=== PATIENT | male | born 1960 | race African-American/Black ===

== ENCOUNTER 2017-04-28 17:25 | Emergency (ER) | payer MEDICAID ==
[~2017-04-28] VITALS: Ht 172.7 cm; Wt 75.3 kg
[~2017-04-28 17:25] MED LIST: LISI10TA5 PO; METF10002 PO
[2017-04-28 19:50] LABS: BASOPHILS % 1.2 % (0.0-2.0); EOSINOPHILS % 1.2 % (0.0-5.0); HEMATOCRIT. 41.8 % (42.0-52.0); HEMOGLOBIN. 13.9 g/dL (14.0-18.0); LYMPHOCYTES % 40.6 % (20.0-50.0); MONOCYTES % 8.7 % (2.0-8.0); NEUTROPHILS % 48.3 % (40.0-76.0); PLATELET 208 x1000/uL (130-400); RED BLOOD CELL COUNT 5.16 mill/uL (4.7-6.1)
[2017-04-28 19:53] LABS: PROTHROMBIN TIME 10.2 sec
[2017-04-28 20:02] LABS: CARBON DIOXIDE 23 mEq/L (21-32); CHLORIDE 102 mEq/L (98-107); ETHANOL BLOOD < 10 mg/dL
[2017-04-28] MEDS ORDERED: ALTEPLASE 100MG/VIAL IV STA ×2 (20:47)
[2017-04-28] MEDS ORDERED: ALTEPLASE 100MG/VIAL IV NR ×2 (21:00)
[2017-04-28 22:20] VITALS: BP 127/72
== END 2017-04-28 22:45 | disposition short-term general hospital (02) ==
LOC: ER 17:25
DX: I69.354 Hemiplegia and hemiparesis following cerebral infarction affecting left non-dominant side (principal); F17.200 Nicotine dependence, unspecified, uncomplicated; J45.909 Unspecified asthma, uncomplicated; R29.810 Facial weakness; Z88.6 Allergy status to analgesic agent; Z88.8 Allergy status to other drugs, medicaments and biological substances
CPT/HCPCS: 36415; 37195; 70450; 71010; 80053; 82962; 85025; 85610; 93005; 99285; G0482; J2997; Z7610

== ENCOUNTER 2017-06-02 05:23 | Inpatient (IN) | payer MEDICAID ==
[~2017-06-02] VITALS: Ht 172.7 cm; Wt 74.8 kg
[2017-06-02] MEDS ORDERED: SODIUM CHLORIDE 0.9% 1,000 ML IV ONE (06:33)
[2017-06-02 07:34] LABS: BASOPHILS % 0.8 % (0.0-2.0); EOSINOPHILS % 0.9 % (0.0-5.0); HEMATOCRIT. 45.7 % (42.0-52.0); HEMOGLOBIN. 15.8 g/dL (14.0-18.0); LYMPHOCYTES % 34.4 % (20.0-50.0); MEAN CORPUSCULAR HEMOGLOBIN 27.9 pg (28.0-32.0); MEAN CORPUSCULAR VOLUME 80.8 fL (80.0-94.0); MEAN PLATELET VOLUME 7.7 fl (7.4-10.4); MONOCYTES % 9.7 % (2.0-8.0); NEUTROPHILS % 54.2 % (40.0-76.0); PLATELET 211 x1000/uL (130-400); RED BLOOD CELL COUNT 5.65 mill/uL (4.7-6.1); RED CELL DISTRIBUTION WIDTH 14.1 % (11.6-14.6)
[2017-06-02 07:36] LABS: PROTHROMBIN TIME 10.1 sec (9.4-11.6)
[2017-06-02 07:37] LABS: CHLORIDE 102 mEq/L (98-107)
[2017-06-02 07:46] LABS: CARBON DIOXIDE 27 mEq/L (21-32); ETHANOL BLOOD < 10 mg/dL; TROPONIN I < 0.02 ng/mL (0.00-0.04)
[2017-06-02 15:01] LABS: CLARITY URINE CLEAR (CLEAR); COLOR URINE YELLOW (YELLOW); GLUCOSE URINE TRACE (NEGATIVE); KETONES URINE TRACE (NEGATIVE); LEUKOCYTE ESTERASE URINE NEGATIVE (NEGATIVE); NITRITE URINE NEGATIVE (NEGATIVE); OCCULT BLOOD URINE NEGATIVE (NEGATIVE); PH URINE 5.5 (4.5-8.0); PROTEIN URINE TRACE (NEGATIVE); SPECIFIC GRAVITY URINE 1.014 (1.005-1.030)
[2017-06-02 15:15] LABS: *AMPHETAMINES SCREEN URINE PRESUMTIVE POSITIVE (NEGATIVE); *BARBITURATES SCREEN URINE NEGATIVE (NEGATIVE); *BENZODIAZEPINES SCREEN URINE NEGATIVE (NEGATIVE); *COCAINE SCREEN URINE PRESUMTIVE POSITIVE (NEGATIVE); CANNABINOID URINE SCREEN NEGATIVE (NEGATIVE); METHADONE URINE SCREEN NEGATIVE (NEGATIVE); OPIATES URINE SCREEN NEGATIVE (NEGATIVE); PHENCYCLIDINE URINE SCREEN NEGATIVE (NEGATIVE)
[2017-06-02 15:30] VITALS: BP_SYST 112; BP_SYST 113; BP_DIAS 74; BP_DIAS 75
[2017-06-02 16:00] VITALS: BP 105/66
[2017-06-02] MEDS ORDERED: CLONIDINE 0.1MG TABLET PO PRN (16:30)
[2017-06-02] MEDS ORDERED: ONDANSETRON HCL 4MG/2ML VIAL IV PRN (16:30)
[2017-06-02] MEDS ORDERED: MAGNESIUM/ALUMINUM HYDROXIDE/SIMETHICONE 30ML UDC PO PRN (16:30)
[2017-06-02] MEDS ORDERED: ACETAMINOPHEN 325MG TABLET PO PRN (16:30)
[2017-06-02] MEDS ORDERED: DIPHENHYDRAMINE 50MG/ML VIAL IV PRN (16:30)
[2017-06-02 16:39] VITALS: BP 105/66
[2017-06-02 20:00] VITALS: BP 106/72
[2017-06-02] MEDS: NAPROXEN 500MG TABLET PO SCH (21:00)
[2017-06-02] MEDS: SODIUM CHLORIDE 0.9% INJ 3ML FLUSH IVF SCH (23:01)
[2017-06-03] VITALS: BP 99/58
[2017-06-03 04:00] VITALS: BP 127/69
[2017-06-03] MEDS: SODIUM CHLORIDE 0.9% INJ 3ML FLUSH IVF SCH ×3 (06:45→22:51)
[2017-06-03 08:18] VITALS: BP 123/78
[2017-06-03] MEDS: NAPROXEN 500MG TABLET PO SCH ×2 (08:52→21:00)
[2017-06-03 11:51] VITALS: BP 118/75
[2017-06-03 15:17] VITALS: BP 101/64
[2017-06-03 20:00] VITALS: BP 119/70
[2017-06-04] VITALS: BP 136/75
[2017-06-04 04:00] VITALS: BP 104/77
[2017-06-04] MEDS: SODIUM CHLORIDE 0.9% INJ 3ML FLUSH IVF SCH ×3 (05:22→21:52)
[2017-06-04 08:00] VITALS: BP 128/80
[2017-06-04] MEDS: NAPROXEN 500MG TABLET PO SCH ×2 (08:51→21:00)
[2017-06-04 12:00] VITALS: BP 118/70
[2017-06-04 16:03] LABS: *AMPHETAMINES SCREEN URINE NEGATIVE (NEGATIVE); *BARBITURATES SCREEN URINE NEGATIVE (NEGATIVE); *BENZODIAZEPINES SCREEN URINE NEGATIVE (NEGATIVE); *COCAINE SCREEN URINE PRESUMTIVE POSITIVE (NEGATIVE); CANNABINOID URINE SCREEN NEGATIVE (NEGATIVE); METHADONE URINE SCREEN NEGATIVE (NEGATIVE); OPIATES URINE SCREEN NEGATIVE (NEGATIVE); PHENCYCLIDINE URINE SCREEN NEGATIVE (NEGATIVE)
[2017-06-04 20:00] VITALS: BP 104/62
[2017-06-05] VITALS: BP 120/76
[2017-06-05 04:00] VITALS: BP 132/79
[2017-06-05] MEDS: SODIUM CHLORIDE 0.9% INJ 3ML FLUSH IVF SCH ×3 (06:00→22:00)
[2017-06-05 08:00] VITALS: BP 118/77
[2017-06-05] MEDS: NAPROXEN 500MG TABLET PO SCH ×2 (09:00→21:00)
[2017-06-05 12:08] VITALS: BP 107/66
[2017-06-05 16:57] VITALS: BP 105/71
[2017-06-05] MEDS ORDERED: MAGNESIUM HYDROXIDE 400MG/5ML 30ML UDC PO PRN (17:00)
[2017-06-05 20:00] VITALS: BP 109/70
[2017-06-06] VITALS: BP 110/67
[2017-06-06 04:00] VITALS: BP 126/70
[2017-06-06] MEDS: SODIUM CHLORIDE 0.9% INJ 3ML FLUSH IVF SCH ×3 (06:00→21:48)
[2017-06-06 07:35] VITALS: BP 109/76
[2017-06-06] MEDS: DOCUSATE SODIUM 250MG CAPSULE PO SCH (09:00)
[2017-06-06] MEDS: NAPROXEN 500MG TABLET PO SCH ×2 (09:00→21:00)
[2017-06-06] MEDS ORDERED: DEXTROSE 50% WATER 50ML SYRINGE IV PRN (10:00)
[2017-06-06] MEDS: BLOOD SUGAR DIAGNOSTIC STRIP TEST SCH ×3 (11:45→21:00)
[2017-06-06] MEDS: INSULIN LISPRO 100 UNITS/ML SUBCUT SCH ×3 (11:47→21:00)
[2017-06-06 12:02] VITALS: BP 111/74
[2017-06-06 15:55] VITALS: BP 113/67
[2017-06-06 20:00] VITALS: BP 116/73
[2017-06-06] MEDS: POLYETHYLENE GLYCOL 3350 (17GM) 1 DOSE PACK PO SCH (21:18)
[2017-06-07] VITALS: BP 101/66
[2017-06-07 04:00] VITALS: BP 120/72
[2017-06-07] MEDS: SODIUM CHLORIDE 0.9% INJ 3ML FLUSH IVF SCH (06:00)
[2017-06-07] MEDS: INSULIN LISPRO 100 UNITS/ML SUBCUT SCH ×2 (06:31→12:15)
[2017-06-07] MEDS: BLOOD SUGAR DIAGNOSTIC STRIP TEST SCH ×2 (06:31→11:45)
[2017-06-07 08:04] VITALS: BP 108/71
[2017-06-07] MEDS: POLYETHYLENE GLYCOL 3350 (17GM) 1 DOSE PACK PO SCH (08:57)
[2017-06-07] MEDS: DOCUSATE SODIUM 250MG CAPSULE PO SCH (08:58)
[2017-06-07] MEDS: NAPROXEN 500MG TABLET PO SCH (08:58)
[2017-06-07 11:48] VITALS: BP 97/66
[2017-06-07 13:55] VITALS: BP 97/66
== END 2017-06-07 14:55 | disposition home or self-care (01) | DRG 48 ==
LOC: EDBEDREQ 08:51 → EDBEDREQTM 08:51 → ER 09:03 → 5WST 09:05 → ENRESERV 12:40
PROVIDERS: ADMIT Internal Medicine; ATTEND Internal Medicine
DX: G90.8 Other disorders of autonomic nervous system (principal); I69.354 Hemiplegia and hemiparesis following cerebral infarction affecting left non-dominant side; I10 Essential (primary) hypertension; F17.200 Nicotine dependence, unspecified, uncomplicated; F19.10 Other psychoactive substance abuse, uncomplicated; E11.9 Type 2 diabetes mellitus without complications; J45.909 Unspecified asthma, uncomplicated; W18.39XA Other fall on same level, initial encounter; Y93.89 Activity, other specified; Y92.89 Other specified places as the place of occurrence of the external cause; Z76.5 Malingerer [conscious simulation]; Y99.8 Other external cause status; Z88.6 Allergy status to analgesic agent; Z88.8 Allergy status to other drugs, medicaments and biological substances; Z79.84 Long term (current) use of oral hypoglycemic drugs; Z79.899 Other long term (current) drug therapy
CPT/HCPCS: 36415; 70450; 71010; 73502; 80053; 80305; 81001; 84484; 85025; 85610; 93005; 96360; 97162; 97164; 99285; 99406; G0482; J7030

== ENCOUNTER 2017-07-14 16:24 | Emergency (ER) | payer MEDICAID ==
[~2017-07-14] VITALS: Ht 172.7 cm; Wt 73.0 kg
[2017-07-14] MEDS ORDERED: SODIUM CHLORIDE 0.9% 1,000 ML IV ONE (19:29)
[2017-07-14 19:47] LABS: BASOPHILS % 0.2 % (0.0-2.0); EOSINOPHILS % 1.4 % (0.0-5.0); HEMATOCRIT. 38.8 % (42.0-52.0); HEMOGLOBIN. 13.1 g/dL (14.0-18.0); LYMPHOCYTES % 34.7 % (20.0-50.0); MEAN CORPUSCULAR HEMOGLOBIN 27.1 pg (28.0-32.0); MEAN CORPUSCULAR VOLUME 80.6 fL (80.0-94.0); MEAN PLATELET VOLUME 7.4 fl (7.4-10.4); MONOCYTES % 8.8 % (2.0-8.0); NEUTROPHILS % 54.9 % (40.0-76.0); PLATELET 221 x1000/uL (130-400); RED BLOOD CELL COUNT 4.82 mill/uL (4.7-6.1); RED CELL DISTRIBUTION WIDTH 13.6 % (11.6-14.6)
[2017-07-14 19:54] LABS: PROTHROMBIN TIME 10.4 sec (9.4-11.6)
[2017-07-14 19:56] LABS: CARBON DIOXIDE 28 mEq/L (21-32); CHLORIDE 102 mEq/L (98-107); ETHANOL BLOOD < 10 mg/dL
[2017-07-14 20:00] LABS: CREATINE KINASE 122 IU/L (39-308)
[2017-07-14 22:22] VITALS: BP 109/62
== END 2017-07-14 22:29 | disposition home or self-care (01) ==
LOC: ER 18:36
DX: M25.552 Pain in left hip (principal); R53.1 Weakness; I10 Essential (primary) hypertension; J45.909 Unspecified asthma, uncomplicated; F17.200 Nicotine dependence, unspecified, uncomplicated; Z86.73 Personal history of transient ischemic attack (TIA), and cerebral infarction without residual deficits; Z88.6 Allergy status to analgesic agent; W19.XXXA Unspecified fall, initial encounter; Y93.89 Activity, other specified; Y92.89 Other specified places as the place of occurrence of the external cause; Y99.8 Other external cause status
CPT/HCPCS: 36415; 70450; 72170; 80053; 82550; 85025; 85610; 93005; 99285; G0482; J7030; Z7610

== ENCOUNTER 2017-09-07 04:28 | Inpatient (IN) | payer MEDICAID ==
[~2017-09-07] VITALS: Ht 152.4 cm; Wt 70.8 kg
[2017-09-07] MEDS ORDERED: SODIUM CHLORIDE 0.9% 1,000 ML IV ONE (05:00)
[2017-09-07 05:20] LABS: BASOPHILS % 0.8 % (0.0-2.0); EOSINOPHILS % 0.6 % (0.0-5.0); HEMATOCRIT. 40.4 % (42.0-52.0); HEMOGLOBIN. 13.3 g/dL (14.0-18.0); LYMPHOCYTES % 26.5 % (20.0-50.0); MEAN CORPUSCULAR HEMOGLOBIN 26.7 pg (28.0-32.0); MEAN CORPUSCULAR VOLUME 81.3 fL (80.0-94.0); MEAN PLATELET VOLUME 7.6 fl (7.4-10.4); MONOCYTES % 7.8 % (2.0-8.0); NEUTROPHILS % 64.3 % (40.0-76.0); PLATELET 194 x1000/uL (130-400); RED BLOOD CELL COUNT 4.97 mill/uL (4.7-6.1); RED CELL DISTRIBUTION WIDTH 13.3 % (11.6-14.6)
[2017-09-07 05:30] LABS: PROTHROMBIN TIME 10.4 sec (9.4-11.6)
[2017-09-07 05:37] LABS: CARBON DIOXIDE 27 mEq/L (21-32); CHLORIDE 102 mEq/L (98-107); ETHANOL BLOOD < 10 mg/dL; LDL CHOLESTEROL 98 mg/dL (5-100); TROPONIN I < 0.02 ng/mL (0.00-0.04)
[2017-09-07] MEDS ORDERED: SODIUM CHLORIDE 0.9% 1,000 ML IV SCH (06:14)
[2017-09-07] MEDS ORDERED: ASPIRIN 325MG TABLET PO ONE (06:15)
[2017-09-07 08:00] VITALS: BP 133/75
[2017-09-07 08:30] LABS: CLARITY URINE CLEAR (CLEAR); COLOR URINE YELLOW (YELLOW); KETONES URINE NEGATIVE (NEGATIVE); LEUKOCYTE ESTERASE URINE NEGATIVE (NEGATIVE); NITRITE URINE NEGATIVE (NEGATIVE); OCCULT BLOOD URINE NEGATIVE (NEGATIVE); PROTEIN URINE NEGATIVE (NEGATIVE); SPECIFIC GRAVITY URINE 1.034 (1.005-1.030)
[2017-09-07 09:10] VITALS: BP 133/75
[2017-09-07 09:19] LABS: *AMPHETAMINES SCREEN URINE NEGATIVE (NEGATIVE); *BARBITURATES SCREEN URINE NEGATIVE (NEGATIVE); *BENZODIAZEPINES SCREEN URINE NEGATIVE (NEGATIVE); *COCAINE SCREEN URINE PRESUMTIVE POSITIVE (NEGATIVE); CANNABINOID URINE SCREEN NEGATIVE (NEGATIVE); METHADONE URINE SCREEN NEGATIVE (NEGATIVE); OPIATES URINE SCREEN NEGATIVE (NEGATIVE); PHENCYCLIDINE URINE SCREEN NEGATIVE (NEGATIVE)
[2017-09-07] MEDS ORDERED: MAGNESIUM/ALUMINUM HYDROXIDE/SIMETHICONE 30ML UDC PO PRN (09:30)
[2017-09-07] MEDS ORDERED: IPRATROPIUM/ALBUTEROL 0.5-3(2.5)MG/3ML NEB INH PRN (09:30)
[2017-09-07] MEDS ORDERED: ACETAMINOPHEN 325MG TABLET PO PRN (09:30)
[2017-09-07] MEDS ORDERED: ONDANSETRON HCL 4MG/2ML VIAL IV PRN (09:30)
[2017-09-07] MEDS ORDERED: GUAIFENESIN 200MG/10ML SUGAR FREE UDC PO PRN (09:30)
[2017-09-07] MEDS ORDERED: DIPHENHYDRAMINE 50MG/ML VIAL IV PRN (09:30)
[2017-09-07] MEDS ORDERED: CLONIDINE 0.1MG TABLET PO PRN (09:30)
[2017-09-07] MEDS ORDERED: KETOROLAC 30MG/ML VIAL IV PRN (09:30)
[2017-09-07] MEDS ORDERED: NA PHOS,M-B/NA PHOS,DI-BA ENEMA 118ML PR PRN (09:30)
[2017-09-07] MEDS ORDERED: DOCUSATE SODIUM 100MG CAPSULE PO PRN (09:30)
[2017-09-07] MEDS: ENOXAPARIN 40MG/0.4ML SYR SUBCUT SCH (10:01)
[2017-09-07] MEDS: PANTOPRAZOLE SODIUM 40 MG/VIAL IV SCH (10:01)
[2017-09-07 11:16] LABS: FOLIC ACID (FOLATE) SERUM 12.9 ng/mL (>5.38)
[2017-09-07 12:00] VITALS: BP 126/76
[2017-09-07] MEDS ORDERED: DEXTROSE 50% WATER 50ML SYRINGE IV PRN (15:45)
[2017-09-07 16:00] VITALS: BP 127/70
[2017-09-07] MEDS: BLOOD SUGAR DIAGNOSTIC STRIP TEST SCH ×3 (16:45→21:38)
[2017-09-07] MEDS: INSULIN LISPRO 100 UNITS/ML SUBCUT SCH ×2 (17:15→21:36)
[2017-09-07 20:00] VITALS: BP 122/75
[2017-09-07] MEDS ORDERED: ZOLPIDEM TARTRATE 5MG TABLET PO PRN (21:00)
[2017-09-07] MEDS ORDERED: INSULIN DETEMIR UD 100 UNITS/ML SYR SUBCUT SCH (22:00)
[2017-09-08] VITALS: BP 125/77
[2017-09-08 04:00] VITALS: BP 121/72
[2017-09-08] MEDS: INSULIN LISPRO 100 UNITS/ML SUBCUT SCH ×2 (06:42→13:19)
[2017-09-08] MEDS: BLOOD SUGAR DIAGNOSTIC STRIP TEST SCH ×2 (06:42→11:45)
[2017-09-08 08:00] VITALS: BP 110/70
[2017-09-08] MEDS ORDERED: ASPIRIN 325MG EC TABLET PO SCH (09:00)
[2017-09-08] MEDS: ENOXAPARIN 40MG/0.4ML SYR SUBCUT SCH (09:12)
[2017-09-08] MEDS: PANTOPRAZOLE SODIUM 40 MG/VIAL IV SCH (09:12)
[2017-09-08 12:00] VITALS: BP 112/71
[2017-09-08 12:36] LABS: CREATINE KINASE 50 IU/L (39-308); TROPONIN I < 0.02 ng/mL (0.00-0.04)
[2017-09-08 14:48] VITALS: BP 112/71
[2017-09-09] MEDS ORDERED: FAMOTIDINE 20MG TABLET PO SCH (09:00)
== END 2017-09-08 16:08 | disposition home or self-care (01) | DRG 861 ==
LOC: ER 04:28 → 5WST 06:16 → EDBEDREQTM 06:39 → ENRESERV 07:00
PROVIDERS: ADMIT Internal Medicine; ATTEND Internal Medicine
DX: R53.1 Weakness (principal); E11.65 Type 2 diabetes mellitus with hyperglycemia; I10 Essential (primary) hypertension; E44.1 Mild protein-calorie malnutrition; Z76.5 Malingerer [conscious simulation]; F14.10 Cocaine abuse, uncomplicated; D63.8 Anemia in other chronic diseases classified elsewhere; F17.210 Nicotine dependence, cigarettes, uncomplicated; J45.909 Unspecified asthma, uncomplicated; Z59.0 Homelessness
CPT/HCPCS: 36415; 70450; 71010; 80053; 80061; 80305; 81001; 82550; 82553; 82607; 82746; 82962; 83036; 83540; 83550; 83721; 84484; 85025; 85610; 93005; 93970; 96360; 96361; 97162; 97166; 99291; C9113; G0482; J1650; J1815; J7030

== ENCOUNTER 2017-11-20 01:40 | Emergency (ER) | payer MEDICAID ==
[~2017-11-20] VITALS: Ht 172.7 cm; Wt 69.0 kg
[2017-11-20] MEDS ORDERED: TRAMADOL 50MG TABLET PO ONE (03:00)
[2017-11-20 05:26] VITALS: BP 112/60
== END 2017-11-20 05:27 | disposition home or self-care (01) ==
LOC: ER 01:40
DX: S70.02XA Contusion of left hip, initial encounter (principal); W01.0XXA Fall on same level from slipping, tripping and stumbling without subsequent striking against object, initial encounter; Y93.89 Activity, other specified; Y92.89 Other specified places as the place of occurrence of the external cause; I10 Essential (primary) hypertension; F17.210 Nicotine dependence, cigarettes, uncomplicated; Z88.6 Allergy status to analgesic agent; Z88.8 Allergy status to other drugs, medicaments and biological substances
CPT/HCPCS: 72170; 99283; Z7610